=== PATIENT | male | born 1945 | race Caucasian/White ===

== ENCOUNTER → 2017-07-07 | Outpatient (CLI) | payer OTHER ==
[~2017-07-07] MED LIST: ACETAMINOPHEN325 M1 PO; ALLOPURINOL 10100 M1 PO; ASPIRIN EC81 M1 PO; CRESTOR10 MG PO; FISH OIL 1,001000 MG PO; GEMFIBROZIL 60600 MG PO; GLUCOPHAGE1000 MG PO; LISINOPRIL-HCT1 EAC2 PO; MAGNESIUM250 M1 PO; METFORMIN HCL500 MG PO; MOBIC15 MG PO; MULTI-VITAMIN1 EAC5 PO; NITROSTAT0.4 MG SL; PLAVIX 75 MG TA75 MG PO; RANITIDINE 150150 M1 PO; VITAMIN D1000 UNI1 PO; VITAMIN D3400 UNI2 PO; VITAMIN D400 UNI1 PO; ZINC CHELATE50 MG PO
[2017-07-07 10:18] LABS: CREATININE 1.2 mg/dL (0.7-1.3)
== END ==
LOC: CAT 09:40
PROVIDERS: Internal Medicine Cardiovascular Disease
DX: Z01.812 Encounter for preprocedural laboratory examination (principal); N28.1 Cyst of kidney, acquired; N40.1 Benign prostatic hyperplasia with lower urinary tract symptoms; I71.4 Abdominal aortic aneurysm, without rupture; J98.11 Atelectasis

== ENCOUNTER → 2018-09-02 | Outpatient (CLI) | payer OTHER ==
[2018-09-02 09:19] LABS: CREATININE 1.4 mg/dL (0.7-1.3)
== END ==
LOC: CAT 08:51
PROVIDERS: Internal Medicine Cardiovascular Disease
DX: I71.4 Abdominal aortic aneurysm, without rupture (principal); I70.1 Atherosclerosis of renal artery; I70.8 Atherosclerosis of other arteries; K55.1 Chronic vascular disorders of intestine; N40.0 Benign prostatic hyperplasia without lower urinary tract symptoms; N28.1 Cyst of kidney, acquired; M16.0 Bilateral primary osteoarthritis of hip; M47.814 Spondylosis without myelopathy or radiculopathy, thoracic region

== ENCOUNTER → 2019-09-15 | Outpatient (CLI) | payer OTHER | LOC: SJCVCIMAG 08:43 | PROVIDERS: ATTEND Internal Medicine Cardiovascular Disease | DX: I71.4 Abdominal aortic aneurysm, without rupture (principal); I49.9 Cardiac arrhythmia, unspecified; I25.10 Atherosclerotic heart disease of native coronary artery without angina pectoris; E78.2 Mixed hyperlipidemia; E11.9 Type 2 diabetes mellitus without complications; I10 Essential (primary) hypertension; Z79.82 Long term (current) use of aspirin; Z79.899 Other long term (current) drug therapy; Z87.891 Personal history of nicotine dependence ==

== ENCOUNTER → 2020-06-24 | Outpatient (CLI) | payer OTHER | LOC: SJCVC 10:31 | PROVIDERS: ATTEND Internal Medicine Cardiovascular Disease | DX: I25.10 Atherosclerotic heart disease of native coronary artery without angina pectoris (principal); I10 Essential (primary) hypertension; E78.00 Pure hypercholesterolemia, unspecified; E11.9 Type 2 diabetes mellitus without complications; I71.4 Abdominal aortic aneurysm, without rupture; E78.1 Pure hyperglyceridemia; E78.5 Hyperlipidemia, unspecified; Z86.16 Personal history of COVID-19; Z79.899 Other long term (current) drug therapy; Z87.891 Personal history of nicotine dependence ==

== ENCOUNTER → 2021-04-10 | Outpatient (CLI) | payer OTHER, MEDICARE | LOC: SJCVCIMAG 03-17 11:40 | PROVIDERS: ATTEND Internal Medicine Cardiovascular Disease | DX: I11.9 Hypertensive heart disease without heart failure (principal); I25.10 Atherosclerotic heart disease of native coronary artery without angina pectoris; E78.2 Mixed hyperlipidemia; E11.9 Type 2 diabetes mellitus without complications; I49.3 Ventricular premature depolarization; I71.4 Abdominal aortic aneurysm, without rupture; Z86.16 Personal history of COVID-19; Z79.82 Long term (current) use of aspirin; Z79.84 Long term (current) use of oral hypoglycemic drugs; Z79.899 Other long term (current) drug therapy; Z87.891 Personal history of nicotine dependence ==